=== PATIENT | female | born 1985 | race Caucasian/White ===

== ENCOUNTER 2021-12-03 14:06 | Emergency (ER) | payer SELFPAY ==
[~2021-12-03] VITALS: Ht 162.6 cm; Wt 52.0 kg
[2021-12-03 14:11] VITALS: BP 144/76
[2021-12-03] MEDS ORDERED: ACETAMINOPHEN 325MG TABLET PO ONE (16:45)
== END 2021-12-03 17:37 | disposition left against medical advice (07) ==
LOC: ER 14:16
DX: S00.03XA Contusion of scalp, initial encounter (principal); Y08.89XA Assault by other specified means, initial encounter; Y07.03 Male partner, perpetrator of maltreatment and neglect; Y93.89 Activity, other specified; Y92.488 Other paved roadways as the place of occurrence of the external cause
CPT/HCPCS: 99283

== ENCOUNTER 2022-01-05 13:24 | Emergency (ER) | payer SELFPAY ==
[~2022-01-05] VITALS: Ht 157.5 cm; Wt 59.0 kg
[2022-01-05 13:26] VITALS: BP 110/70
== END 2022-01-05 16:19 | disposition left against medical advice (07) ==
LOC: ER 13:24
DX: Z53.21 Procedure and treatment not carried out due to patient leaving prior to being seen by health care provider (principal)
CPT/HCPCS: 99283

== ENCOUNTER 2022-03-08 13:59 | Emergency (ER) | payer SELFPAY ==
[~2022-03-08] VITALS: Ht 175.3 cm; Wt 55.0 kg
[2022-03-08 14:04] VITALS: BP 95/65
== END 2022-03-08 19:25 | disposition left against medical advice (07) ==
LOC: ER 13:59
DX: Z53.21 Procedure and treatment not carried out due to patient leaving prior to being seen by health care provider (principal)

== ENCOUNTER 2022-03-08 18:29 | Emergency (ER) | payer SELFPAY ==
[~2022-03-08] VITALS: Ht 165.1 cm; Wt 49.0 kg
[2022-03-08 18:39] VITALS: BP 107/78
== END 2022-03-08 19:30 | disposition left against medical advice (07) ==
LOC: ER 18:43
DX: Z53.21 Procedure and treatment not carried out due to patient leaving prior to being seen by health care provider (principal)

== ENCOUNTER 2022-03-08 22:59 | Emergency (ER) | payer SELFPAY ==
[~2022-03-08] VITALS: Ht 162.6 cm; Wt 60.0 kg
[2022-03-09 03:15] VITALS: BP 100/71
[2022-03-09] MEDS ORDERED: IBUPROFEN 600MG TABLET PO ONE (03:15)
== END 2022-03-09 03:30 | disposition home or self-care (01) ==
LOC: ER 23:09
DX: G89.29 Other chronic pain (principal); M79.10 Myalgia, unspecified site; G62.9 Polyneuropathy, unspecified; Z59.00 Homelessness unspecified
CPT/HCPCS: 99283

== ENCOUNTER 2022-03-31 11:07 | Emergency (ER) | payer SELFPAY ==
[~2022-03-31] VITALS: Ht 165.1 cm; Wt 57.0 kg
[2022-03-31 11:14] VITALS: BP 132/68
[2022-03-31] MEDS ORDERED: FAMOTIDINE 20MG/2ML VIAL IV STA (11:20)
[2022-03-31] MEDS ORDERED: ONDANSETRON HCL 4MG/2ML INJ IV STA (11:20)
[2022-03-31] MEDS ORDERED: SODIUM CHLORIDE 0.9% 1,000 ML IV ONE (11:30)
[2022-03-31 11:52] LABS: BASOPHILS % 0.6 % (0.0-2.0); EOSINOPHILS % 0.1 % (0.0-5.0); HEMATOCRIT. 33.1 % (36.0-48.0); HEMOGLOBIN. 11.1 g/dL (12.0-16.0); LYMPHOCYTES % 15.8 % (20.0-50.0); MEAN CORPUSCULAR HEMOGLOBIN 31.6 pg (28.0-32.0); MEAN CORPUSCULAR VOLUME 93.9 fL (81.0-99.0); MEAN PLATELET VOLUME 7.1 fl (7.4-10.4); MONOCYTES % 8.3 % (2.0-8.0); NEUTROPHILS % 75.2 % (40.0-76.0); PLATELET 314 x1000/uL (130-400); RED BLOOD CELL COUNT 3.53 mill/uL (4.2-5.4); RED CELL DISTRIBUTION WIDTH 16.6 % (11.6-14.6)
[2022-03-31 12:07] LABS: CLARITY URINE CLEAR (CLEAR); COLOR URINE YELLOW (YELLOW); KETONES URINE NEGATIVE (NEGATIVE); LEUKOCYTE ESTERASE URINE 2+ (NEGATIVE); NITRITE URINE NEGATIVE (NEGATIVE); OCCULT BLOOD URINE TRACE (NEGATIVE); PROTEIN URINE NEGATIVE (NEGATIVE); SPECIFIC GRAVITY URINE 1.001 (1.005-1.030); UROBILINOGEN URINE 0.2 E.U./dL (0.2-1.0)
[2022-03-31] MEDS ORDERED: CEFTRIAXONE 1 G PREMIX 50 ML IV NR (12:15)
[2022-03-31 12:27] LABS: CHLORIDE 93 mEq/L (98-107)
[2022-03-31 12:30] LABS: HCG SCREEN NEGATIVE
[2022-03-31 12:47] LABS: ETHANOL BLOOD 488 mg/dL
[2022-03-31] MEDS ORDERED: POTASSIUM CHLORIDE 20MEQ TABLET SR PO NR (13:00)
[2022-03-31] MEDS ORDERED: DEXTROSE 50% WATER 50ML SYRINGE IV ONE (13:00)
[2022-03-31] MEDS ORDERED: ONDA4TAB50 MT (13:45)
== END 2022-03-31 14:40 | disposition left against medical advice (07) ==
LOC: ER 11:07
DX: F10.129 Alcohol abuse with intoxication, unspecified (principal); Y90.8 Blood alcohol level of 240 mg/100 ml or more; D64.9 Anemia, unspecified; K70.10 Alcoholic hepatitis without ascites; K29.20 Alcoholic gastritis without bleeding; F10.10 Alcohol abuse, uncomplicated; E16.2 Hypoglycemia, unspecified
CPT/HCPCS: 36415; 70450; 70486; 72125; 80053; 80320; 81003; 82962; 83690; 84703; 85025; 96361; 96365; 96375; 99284; J0696; J2405; J3490; J7030; Z7610; G0480

== ENCOUNTER 2022-05-24 16:33 | Emergency (ER) | payer SELFPAY ==
[~2022-05-24] VITALS: Ht 160 cm; Wt 50.0 kg
[~2022-05-24 16:33] MED LIST: ONDA4TAB50 MT
[2022-05-24 16:35] VITALS: BP 101/65
== END 2022-05-24 20:00 | disposition left against medical advice (07) ==
LOC: ER 16:33
DX: Z53.21 Procedure and treatment not carried out due to patient leaving prior to being seen by health care provider (principal)
CPT/HCPCS: 99281

== ENCOUNTER 2022-06-05 15:04 | Emergency (ER) | payer MEDICAID ==
[~2022-06-05] VITALS: Ht 162.6 cm; Wt 70.0 kg
[2022-06-05 15:07] VITALS: BP 110/80
[2022-06-06] MEDS ORDERED: IBUP-2029 MT (19:59)
== END 2022-06-05 19:02 | disposition left against medical advice (07) ==
LOC: ER 15:04
DX: M79.672 Pain in left foot (principal); M79.671 Pain in right foot; Z53.21 Procedure and treatment not carried out due to patient leaving prior to being seen by health care provider
CPT/HCPCS: 99281

== ENCOUNTER 2022-06-06 11:06 | Emergency (ER) | payer MEDICAID ==
[~2022-06-06] VITALS: Ht 162.6 cm; Wt 54.0 kg
[2022-06-06 11:07] VITALS: BP 131/88
[2022-06-06] MEDS ORDERED: IBUP-2029 MT (19:59)
== END 2022-06-06 12:50 | disposition left against medical advice (07) ==
LOC: ER 11:06
DX: Z53.21 Procedure and treatment not carried out due to patient leaving prior to being seen by health care provider (principal)
CPT/HCPCS: 99281

== ENCOUNTER 2022-06-06 16:56 | Emergency (ER) | payer MEDICAID ==
[~2022-06-06] VITALS: Ht 167.6 cm; Wt 64.0 kg
[2022-06-06 17:10] VITALS: BP 94/57
[2022-06-06] MEDS ORDERED: IBUPROFEN 600MG TABLET PO STA (17:19)
[2022-06-06] MEDS ORDERED: IBUP-2029 MT (19:59)
== END 2022-06-06 20:11 | disposition home or self-care (01) ==
LOC: ER 16:56
DX: S00.83XA Contusion of other part of head, initial encounter (principal); Z98.890 Other specified postprocedural states; Y04.0XXA Assault by unarmed brawl or fight, initial encounter; Y93.9 Activity, unspecified; Y92.89 Other specified places as the place of occurrence of the external cause; Y99.8 Other external cause status
CPT/HCPCS: 70486; 99284

== ENCOUNTER 2022-06-14 13:46 | Emergency (ER) | payer MEDICAID ==
[~2022-06-14] VITALS: Ht 172.7 cm; Wt 70.0 kg
[~2022-06-14 13:46] MED LIST changes: +IBUP-2029 MT
[2022-06-14 13:52] VITALS: BP 99/58
[2022-06-14] MEDS ORDERED: SODIUM CHLORIDE 0.9% 1,000 ML IV ONE (15:00)
[2022-06-14 15:53] LABS: BASOPHILS % 0.4 % (0.0-2.0); EOSINOPHILS % 2.5 % (0.0-5.0); HEMATOCRIT. 33.5 % (36.0-48.0); LYMPHOCYTES % 27.4 % (20.0-50.0); MEAN CORPUSCULAR VOLUME 97.3 fL (81.0-99.0); MEAN PLATELET VOLUME 7.6 fl (7.4-10.4); MONOCYTES % 8.6 % (2.0-8.0); NEUTROPHILS % 61.1 % (40.0-76.0); PLATELET 179 x1000/uL (130-400); RED BLOOD CELL COUNT 3.44 mill/uL (4.2-5.4); RED CELL DISTRIBUTION WIDTH 15.3 % (11.6-14.6)
[2022-06-14 16:00] LABS: CHLORIDE 107 mEq/L (98-107)
[2022-06-14 16:07] LABS: HCG SCREEN NEGATIVE
[2022-06-14 16:53] LABS: ETHANOL BLOOD 330 mg/dL
== END 2022-06-14 20:00 | disposition left against medical advice (07) ==
LOC: ER 13:46
DX: R51.9 Headache, unspecified (principal)
CPT/HCPCS: 36415; 80053; 80320; 84703; 85025; 99283; J7030; G0480

== ENCOUNTER 2022-06-15 12:18 | Emergency (ER) | payer MEDICAID ==
[~2022-06-15] VITALS: Ht 162.6 cm; Wt 55.0 kg
[2022-06-15 12:25] VITALS: BP 92/65
[2022-06-15] MEDS ORDERED: SODIUM CHLORIDE 0.9% 1,000 ML IV ONE (12:30)
== END 2022-06-15 12:47 | disposition left against medical advice (07) ==
LOC: ER 12:18
DX: G62.9 Polyneuropathy, unspecified (principal); Y09 Assault by unspecified means
CPT/HCPCS: 99283; J7030

== ENCOUNTER 2022-06-15 13:37 | Emergency (ER) | payer MEDICAID ==
[~2022-06-15] VITALS: Ht 160 cm; Wt 50.0 kg
[2022-06-15 13:39] VITALS: BP 136/70
== END 2022-06-15 15:03 | disposition left against medical advice (07) ==
LOC: ER 13:37
DX: Z53.21 Procedure and treatment not carried out due to patient leaving prior to being seen by health care provider (principal)
CPT/HCPCS: 99281

== ENCOUNTER 2022-06-16 17:55 | Emergency (ER) | payer MEDICAID ==
[~2022-06-16] VITALS: Ht 162.6 cm; Wt 50.0 kg
[2022-06-16 17:58] VITALS: BP 96/69
== END 2022-06-16 21:17 | disposition left against medical advice (07) ==
LOC: ER 18:09
DX: Z53.21 Procedure and treatment not carried out due to patient leaving prior to being seen by health care provider (principal)
CPT/HCPCS: 99281

== ENCOUNTER 2022-06-17 00:05 | Emergency (ER) | payer MEDICAID ==
[~2022-06-17] VITALS: Ht 170.2 cm; Wt 59.0 kg
[2022-06-17 00:07] VITALS: BP 126/80
[2022-06-17] MEDS ORDERED: SODIUM CHLORIDE 0.9% 1,000 ML IV ONE (00:15)
[2022-06-17 04:42] LABS: BASOPHILS % 0.3 % (0.0-2.0); EOSINOPHILS % 1.5 % (0.0-5.0); HEMATOCRIT. 31.5 % (36.0-48.0); HEMOGLOBIN. 10.5 g/dL (12.0-16.0); MEAN CORPUSCULAR HEMOGLOBIN 31.8 pg (28.0-32.0); MEAN CORPUSCULAR VOLUME 95.7 fL (81.0-99.0); MEAN PLATELET VOLUME 7.2 fl (7.4-10.4); MONOCYTES % 7.8 % (2.0-8.0); NEUTROPHILS % 38.4 % (40.0-76.0); PLATELET 247 x1000/uL (130-400); RED BLOOD CELL COUNT 3.29 mill/uL (4.2-5.4); RED CELL DISTRIBUTION WIDTH 15.4 % (11.6-14.6)
[2022-06-17 05:05] LABS: CHLORIDE 108 mEq/L (98-107)
[2022-06-17 05:08] LABS: HCG SCREEN NEGATIVE
[2022-06-17 05:17] LABS: ETHANOL BLOOD 356 mg/dL
== END 2022-06-17 11:43 | disposition left against medical advice (07) ==
LOC: ER 00:05
DX: F10.129 Alcohol abuse with intoxication, unspecified (principal); Y90.8 Blood alcohol level of 240 mg/100 ml or more; Y04.0XXA Assault by unarmed brawl or fight, initial encounter; Y93.89 Activity, other specified; Y92.89 Other specified places as the place of occurrence of the external cause; Y99.8 Other external cause status
CPT/HCPCS: 36415; 80053; 80320; 81025; 84703; 85025; 99283; J7030; G0480

== ENCOUNTER 2022-06-17 11:38 | Emergency (ER) | payer MEDICAID ==
[~2022-06-17] VITALS: Ht 165.1 cm; Wt 59.0 kg
[2022-06-17 11:42] VITALS: BP 93/55
== END 2022-06-17 17:54 | disposition left against medical advice (07) ==
LOC: ER 11:53
DX: Z53.21 Procedure and treatment not carried out due to patient leaving prior to being seen by health care provider (principal)

== ENCOUNTER 2022-06-20 22:13 | Emergency (ER) | payer MEDICAID ==
[~2022-06-20] VITALS: Ht 165.1 cm; Wt 64.0 kg
[2022-06-20 22:38] VITALS: BP 100/72
[2022-06-21] MEDS ORDERED: ACETAMINOPHEN 325MG TABLET PO ONE (01:15)
[2022-06-21] MEDS ORDERED: IBUP-2437 MT (01:15)
== END 2022-06-21 02:00 | disposition home or self-care (01) ==
LOC: ER 22:13
DX: R51.9 Headache, unspecified (principal); E11.9 Type 2 diabetes mellitus without complications; Z98.890 Other specified postprocedural states
CPT/HCPCS: 99283

== ENCOUNTER 2022-07-24 18:17 | Emergency (ER) | payer MEDICAID ==
[~2022-07-24] VITALS: Ht 170.2 cm; Wt 55.0 kg
[~2022-07-24 18:17] MED LIST changes: +IBUP-2437 MT
[2022-07-24 18:27] VITALS: BP 158/88
[2022-07-24] MEDS ORDERED: ACETAMINOPHEN 325MG TABLET PO ONE (18:45)
== END 2022-07-25 02:57 | disposition left against medical advice (07) ==
LOC: ER 18:17
DX: R51.9 Headache, unspecified (principal); Z53.21 Procedure and treatment not carried out due to patient leaving prior to being seen by health care provider
CPT/HCPCS: 99281

== ENCOUNTER 2022-08-09 14:41 | Emergency (ER) | payer MEDICAID ==
[~2022-08-09] VITALS: Ht 157.5 cm; Wt 55.0 kg
[2022-08-09 14:44] VITALS: BP 88/59
[2022-08-09 15:53] LABS: BASOPHILS % 0.6 % (0.0-2.0); EOSINOPHILS % 0.4 % (0.0-5.0); HEMATOCRIT. 32.9 % (36.0-48.0); HEMOGLOBIN. 10.9 g/dL (12.0-16.0); LYMPHOCYTES % 34.2 % (20.0-50.0); MEAN CORPUSCULAR HEMOGLOBIN 31.6 pg (28.0-32.0); MEAN CORPUSCULAR VOLUME 95.5 fL (81.0-99.0); MEAN PLATELET VOLUME 7.3 fl (7.4-10.4); MONOCYTES % 9.1 % (2.0-8.0); NEUTROPHILS % 55.7 % (40.0-76.0); PLATELET 172 x1000/uL (130-400); RED BLOOD CELL COUNT 3.45 mill/uL (4.2-5.4); RED CELL DISTRIBUTION WIDTH 17.2 % (11.6-14.6)
[2022-08-09 16:02] LABS: CHLORIDE 103 mEq/L (98-107)
[2022-08-09 16:20] LABS: ETHANOL BLOOD 423 mg/dL; HCG SCREEN NEGATIVE
== END 2022-08-09 17:36 | disposition left against medical advice (07) ==
LOC: ER 15:10
DX: E11.9 Type 2 diabetes mellitus without complications (principal); F10.129 Alcohol abuse with intoxication, unspecified; Z53.21 Procedure and treatment not carried out due to patient leaving prior to being seen by health care provider; Z98.890 Other specified postprocedural states; Y04.0XXA Assault by unarmed brawl or fight, initial encounter; Y93.89 Activity, other specified; Y92.89 Other specified places as the place of occurrence of the external cause; Y99.8 Other external cause status; Y90.8 Blood alcohol level of 240 mg/100 ml or more
CPT/HCPCS: 36415; 80053; 80320; 84703; 85025; 99283; G0480

== ENCOUNTER 2022-08-21 14:26 | Emergency (ER) | payer MEDICAID ==
[~2022-08-21] VITALS: Ht 157.5 cm; Wt 55.0 kg
[2022-08-21 14:28] VITALS: BP 98/62
== END 2022-08-21 16:22 | disposition left against medical advice (07) ==
LOC: ER 14:26
DX: R51.9 Headache, unspecified (principal); Z53.21 Procedure and treatment not carried out due to patient leaving prior to being seen by health care provider
CPT/HCPCS: 99281

== ENCOUNTER 2022-08-25 20:33 | Emergency (ER) | payer MEDICAID ==
[~2022-08-25] VITALS: Ht 162.6 cm; Wt 55.0 kg
[2022-08-25 20:46] VITALS: BP 105/75
== END 2022-08-26 00:02 | disposition left against medical advice (07) ==
LOC: ER 20:33
DX: R51.9 Headache, unspecified (principal); E11.9 Type 2 diabetes mellitus without complications
CPT/HCPCS: 99283

== ENCOUNTER 2022-09-08 15:44 | Emergency (ER) | payer MEDICAID ==
[~2022-09-08] VITALS: Ht 167.6 cm; Wt 68.0 kg
[2022-09-08 15:46] VITALS: BP 120/82; PULSE 83; RESP 15; TEMP 97.6; O2SAT 98
== END 2022-09-09 03:00 | disposition left against medical advice (07) ==
LOC: ER 15:44
DX: Z53.21 Procedure and treatment not carried out due to patient leaving prior to being seen by health care provider (principal)

== ENCOUNTER 2022-09-14 12:41 | Emergency (ER) | payer MEDICAID ==
[~2022-09-14] VITALS: Ht 167.6 cm; Wt 61.0 kg
[2022-09-14 12:44] VITALS: O2SAT 99
[2022-09-14] MEDS ORDERED: SODIUM CHLORIDE 0.9% 1,000 ML IV ONE (13:15)
[2022-09-14 13:21] LABS: BASOPHILS % 1.1 % (0.0-2.0); EOSINOPHILS % 2.9 % (0.0-5.0); HEMATOCRIT. 32.2 % (36.0-48.0); HEMOGLOBIN. 10.8 g/dL (12.0-16.0); LYMPHOCYTES % 35.1 % (20.0-50.0); MEAN CORPUSCULAR HEMOGLOBIN 32.8 pg (28.0-32.0); MEAN CORPUSCULAR VOLUME 97.8 fL (81.0-99.0); MEAN PLATELET VOLUME 7.3 fl (7.4-10.4); MONOCYTES % 5.2 % (2.0-8.0); NEUTROPHILS % 55.7 % (40.0-76.0); PLATELET 143 x1000/uL (130-400); RED BLOOD CELL COUNT 3.29 mill/uL (4.2-5.4); RED CELL DISTRIBUTION WIDTH 17.1 % (11.6-14.6)
[2022-09-14 13:30] VITALS: BP 92/65; PULSE 88; RESP 20; TEMP 97.8
[2022-09-14 13:48] LABS: CHLORIDE 108 mEq/L (98-107)
[2022-09-14 14:05] LABS: ETHANOL BLOOD 476 mg/dL (-10)
[2022-09-14 17:25] LABS: HCG SCREEN NEGATIVE
== END 2022-09-14 18:04 | disposition home or self-care (01) ==
LOC: ER 12:41
DX: T51.0X1A Toxic effect of ethanol, accidental (unintentional), initial encounter (principal); E11.9 Type 2 diabetes mellitus without complications; Y92.9 Unspecified place or not applicable
CPT/HCPCS: 80053; 80320; 82962; 84703; 83690; 85025; 36415; 93005; 96360; 99284; J7030; G0480

== ENCOUNTER 2022-09-17 16:15 | Emergency (ER) | payer MEDICAID ==
[~2022-09-17] VITALS: Ht 165.1 cm; Wt 59.0 kg
[2022-09-17 16:18] VITALS: BP 115/67; PULSE 89; RESP 16; TEMP 98.4; O2SAT 97
== END 2022-09-17 16:49 | disposition left against medical advice (07) ==
LOC: ER 16:15
DX: F10.129 Alcohol abuse with intoxication, unspecified (principal); Y90.0 Blood alcohol level of less than 20 mg/100 ml; E11.9 Type 2 diabetes mellitus without complications; Z87.891 Personal history of nicotine dependence
CPT/HCPCS: 99283

== ENCOUNTER 2022-09-20 21:16 | Emergency (ER) | payer MEDICAID ==
[~2022-09-20] VITALS: Ht 162.6 cm; Wt 64.0 kg
[2022-09-20 21:20] VITALS: BP 107/72; PULSE 93; RESP 18; TEMP 98.7; O2SAT 100
[2022-09-20 23:05] LABS: BASOPHILS % 1.3 % (0.0-2.0); EOSINOPHILS % 3.4 % (0.0-5.0); HEMATOCRIT. 32.5 % (36.0-48.0); HEMOGLOBIN. 10.6 g/dL (12.0-16.0); LYMPHOCYTES % 47.7 % (20.0-50.0); MEAN CORPUSCULAR HEMOGLOBIN 32.4 pg (28.0-32.0); MEAN CORPUSCULAR VOLUME 99.6 fL (81.0-99.0); MEAN PLATELET VOLUME 7.5 fl (7.4-10.4); MONOCYTES % 7.2 % (2.0-8.0); NEUTROPHILS % 40.4 % (40.0-76.0); PLATELET 110 x1000/uL (130-400); RED BLOOD CELL COUNT 3.26 mill/uL (4.2-5.4); RED CELL DISTRIBUTION WIDTH 17.7 % (11.6-14.6)
[2022-09-20 23:12] LABS: CHLORIDE 105 mEq/L (98-107)
[2022-09-20 23:15] LABS: INR 1.2; PROTHROMBIN TIME 12.5 sec (9.6-11.0)
[2022-09-20 23:20] LABS: HCG SCREEN NEGATIVE
[2022-09-20 23:36] LABS: ETHANOL BLOOD 431 mg/dL (-10)
== END 2022-09-21 06:30 | disposition home or self-care (01) ==
LOC: ER 21:16
DX: F10.129 Alcohol abuse with intoxication, unspecified (principal); I10 Essential (primary) hypertension; E11.9 Type 2 diabetes mellitus without complications; Y90.8 Blood alcohol level of 240 mg/100 ml or more
CPT/HCPCS: 36415; 80053; 80320; 84703; 85025; 99283; G0480

== ENCOUNTER 2022-09-21 06:53 | Emergency (ER) | payer MEDICAID ==
[~2022-09-21] VITALS: Ht 162.6 cm; Wt 60.0 kg
[2022-09-21 06:57] VITALS: BP 93/67; PULSE 77; RESP 16; TEMP 98.1; O2SAT 98
[2022-09-21] MEDS ORDERED: ONDANSETRON HCL 4MG/2ML INJ IV STA (07:05)
[2022-09-21] MEDS ORDERED: MORPHINE SULFATE 4 MG/ML CPJ (NOT FOR IM USE) IV STA (07:05)
[2022-09-21] MEDS ORDERED: SODIUM CHLORIDE 0.9% 1,000 ML IV ONE (07:15)
[2022-09-21] MEDS ORDERED: ONDANSETRON HCL 4MG/2ML INJ IV NR (09:30)
[2022-09-21] MEDS ORDERED: MORPHINE SULFATE 4 MG/ML CPJ (NOT FOR IM USE) IV NR (09:30)
== END 2022-09-21 09:43 | disposition home or self-care (01) ==
LOC: ER 08:11
DX: R10.84 Generalized abdominal pain (principal); I10 Essential (primary) hypertension; E11.9 Type 2 diabetes mellitus without complications
CPT/HCPCS: 74176; 99284; J7030; Z7610 ×3

== ENCOUNTER 2022-09-28 11:35 | Emergency (ER) | payer MEDICAID ==
[~2022-09-28] VITALS: Ht 167.6 cm; Wt 58.0 kg
[2022-09-28 11:38] VITALS: BP 101/67; PULSE 106; RESP 20; TEMP 98.5; O2SAT 97
== END 2022-09-28 16:37 | disposition left against medical advice (07) ==
LOC: ER 11:35
DX: Z53.21 Procedure and treatment not carried out due to patient leaving prior to being seen by health care provider (principal)
CPT/HCPCS: 99281

== ENCOUNTER 2022-09-28 18:14 | Emergency (ER) | payer MEDICAID ==
[~2022-09-28] VITALS: Ht 162.6 cm; Wt 55.0 kg
[2022-09-28 18:23] VITALS: BP 90/40; PULSE 80; RESP 16; TEMP 98; O2SAT 99
== END 2022-09-28 18:20 | disposition left against medical advice (07) ==
LOC: ER 18:14
DX: Z53.21 Procedure and treatment not carried out due to patient leaving prior to being seen by health care provider (principal)
CPT/HCPCS: 99281

== ENCOUNTER 2022-10-11 23:39 | Emergency (ER) | payer MEDICAID ==
[~2022-10-11] VITALS: Ht 160 cm; Wt 51.0 kg
[2022-10-11 23:43] VITALS: O2SAT 98
[2022-10-11] MEDS ORDERED: MAGNESIUM/ALUMINUM HYDROXIDE/SIMETHICONE 30ML UDC PO STA (23:59)
[2022-10-12 03:52] LABS: BASOPHILS % 0.8 % (0.0-2.0); EOSINOPHILS % 1.4 % (0.0-5.0); HEMATOCRIT. 31.3 % (36.0-48.0); HEMOGLOBIN. 10.4 g/dL (12.0-16.0); LYMPHOCYTES % 34.1 % (20.0-50.0); MEAN CORPUSCULAR HEMOGLOBIN 33.7 pg (28.0-32.0); MEAN CORPUSCULAR VOLUME 101.1 fL (81.0-99.0); MONOCYTES % 6.2 % (2.0-8.0); NEUTROPHILS % 57.5 % (40.0-76.0); PLATELET 308 x1000/uL (130-400)
[2022-10-12 04:12] LABS: CHLORIDE 108 mEq/L (98-107)
[2022-10-12 04:26] LABS: HCG SCREEN NEGATIVE
[2022-10-12] MEDS ORDERED: ONDA4TAB50 MT (05:03)
[2022-10-12 05:14] VITALS: BP 105/77; PULSE 83; RESP 15; TEMP 97.8
== END 2022-10-12 05:15 | disposition home or self-care (01) ==
LOC: ER 23:39
DX: R10.9 Unspecified abdominal pain (principal); E11.9 Type 2 diabetes mellitus without complications; Z53.21 Procedure and treatment not carried out due to patient leaving prior to being seen by health care provider; Z90.49 Acquired absence of other specified parts of digestive tract
CPT/HCPCS: 36415; 80053; 84703; 85025; 99283

== ENCOUNTER 2022-10-12 20:29 | Emergency (ER) | payer MEDICAID ==
[~2022-10-12] VITALS: Ht 172.7 cm; Wt 56.0 kg
[2022-10-12 20:39] VITALS: BP 95/57; PULSE 76; RESP 16; TEMP 97.3; O2SAT 99
== END 2022-10-13 01:11 | disposition left against medical advice (07) ==
LOC: ER 20:29
DX: R10.9 Unspecified abdominal pain (principal)
CPT/HCPCS: 99283; Z7610

== ENCOUNTER 2022-10-13 20:01 | Emergency (ER) | payer MEDICAID ==
[~2022-10-13] VITALS: Ht 167.6 cm; Wt 73.0 kg
[2022-10-13 20:05] VITALS: BP 109/80; PULSE 81; RESP 16; TEMP 98.2; O2SAT 99
[2022-10-13] MEDS ORDERED: SODIUM CHLORIDE 0.9% 1,000 ML IV ONE (20:15)
[2022-10-13 21:13] LABS: BASOPHILS % 1.3 % (0.0-2.0); DIFFERENTIAL COMMENT 0; EOSINOPHILS % 1.4 % (0.0-5.0); HEMATOCRIT. 32.9 % (36.0-48.0); HEMOGLOBIN. 11.2 g/dL (12.0-16.0); LYMPHOCYTES % 37.7 % (20.0-50.0); MEAN CORPUSCULAR HEMOGLOBIN 34.3 pg (28.0-32.0); MEAN CORPUSCULAR HGB CONC 33.9 g/dL (31.0-37.0); MEAN CORPUSCULAR VOLUME 101.1 fL (81.0-99.0); MEAN PLATELET VOLUME 7.4 fl (7.4-10.4); MONOCYTES % 6.1 % (2.0-8.0); NEUTROPHILS % 53.5 % (40.0-76.0); PLATELET 288 x1000/uL (130-400); RED BLOOD CELL COUNT 3.25 mill/uL (4.2-5.4); RED CELL DISTRIBUTION WIDTH 15.8 % (11.6-14.6); WHITE BLOOD COUNT 5.3 x1000/uL (4.5-11.0)
[2022-10-13 21:19] LABS: INR 1.1; PROTHROMBIN TIME 11.8 sec (9.6-11.0)
[2022-10-13 21:23] LABS: CHLORIDE 105 mEq/L (98-107); INDEX HEMOLYSI 1 (1-3); INDEX ICTERIC 1 (1-4); INDEX LIPEMIC 1 (1-3); POTASSIUM 3.6 mEq/L (3.5-5.1); SODIUM 139 mEq/L (136-145)
[2022-10-13 21:34] LABS: ALANINE AMINOTRANSFERASE 106 IU/L (13-61); ASPARTATE AMINOTRANSFERASE 404 IU/L (15-37); BETA HYDROXYBUTYRATE 0.3 mMol/L (0.0-0.3); BILIRUBIN TOTAL 0.5 mg/dL (0.1-1.0); CALCIUM 8.9 mg/dL (8.5-10.1); CARBON DIOXIDE 25 mEq/L (21-32); CREATININE 0.5 mg/dL (0.6-1.3); GLUCOSE 84 mg/dL (70-105); UREA NITROGEN BLOOD 3 mg/dL (7-21)
[2022-10-13 21:36] LABS: HCG SCREEN NEGATIVE
[2022-10-13 21:40] LABS: TROPONIN I HIGH SENSITIVITY < 4 ng/L (<54)
[2022-10-13 21:44] LABS: ETHANOL BLOOD 437 mg/dL (-10)
[2022-10-13 21:45] LABS: LACTIC ACID 2.6 mmol/L (0.4-2.0)
== END 2022-10-14 01:57 | disposition home or self-care (01) ==
LOC: EDBD → ER 20:01
DX: F10.129 Alcohol abuse with intoxication, unspecified (principal); Y90.8 Blood alcohol level of 240 mg/100 ml or more; E11.9 Type 2 diabetes mellitus without complications; Z79.899 Other long term (current) drug therapy
CPT/HCPCS: 80053; 82010; 80320; 82962; 84703; 83605; 83690; 85025; 85610; 84484; 36415; 74176; 93005; 96360; 99284; J7030; G0480

== ENCOUNTER 2022-10-14 14:30 | Emergency (ER) | payer MEDICAID ==
[~2022-10-14] VITALS: Ht 162.6 cm; Wt 65.0 kg
[2022-10-14 14:47] VITALS: BP 102/64; PULSE 98; RESP 18; TEMP 98.4; O2SAT 100
[2022-10-14 15:48] LABS: EOSINOPHILS % 0.9 % (0.0-5.0); HEMATOCRIT. 29.1 % (36.0-48.0); HEMOGLOBIN. 10.1 g/dL (12.0-16.0); LYMPHOCYTES % 27.4 % (20.0-50.0); MEAN CORPUSCULAR VOLUME 100.7 fL (81.0-99.0); MEAN PLATELET VOLUME 7.4 fl (7.4-10.4); MONOCYTES % 5.2 % (2.0-8.0); NEUTROPHILS % 65.5 % (40.0-76.0); PLATELET 238 x1000/uL (130-400); RED BLOOD CELL COUNT 2.89 mill/uL (4.2-5.4); RED CELL DISTRIBUTION WIDTH 15.7 % (11.6-14.6)
[2022-10-14 15:56] LABS: INR 1.1; PROTHROMBIN TIME 11.7 sec (9.6-11.0)
[2022-10-14 15:58] LABS: CHLORIDE 105 mEq/L (98-107)
[2022-10-14 16:06] LABS: ETHANOL BLOOD 374 mg/dL (-10)
== END 2022-10-14 14:40 | disposition home or self-care (01) ==
LOC: ER 14:30
DX: F10.129 Alcohol abuse with intoxication, unspecified (principal); Y90.8 Blood alcohol level of 240 mg/100 ml or more
CPT/HCPCS: 36415; 80053; 80320; 85025; 99283; G0480

== ENCOUNTER 2022-10-15 21:34 | Emergency (ER) | payer MEDICAID ==
[~2022-10-15] VITALS: Ht 162.6 cm; Wt 65.0 kg
== END 2022-10-16 00:30 | disposition left against medical advice (07) ==
LOC: ER 21:34
DX: Z53.21 Procedure and treatment not carried out due to patient leaving prior to being seen by health care provider (principal)
CPT/HCPCS: 99281

== ENCOUNTER 2022-10-18 18:39 | Emergency (ER) | payer MEDICAID ==
[~2022-10-18] VITALS: Ht 162.6 cm; Wt 65.0 kg
[2022-10-18 18:42] VITALS: BP 99/70; PULSE 96; RESP 16; TEMP 98.5; O2SAT 97
== END 2022-10-18 21:01 | disposition left against medical advice (07) ==
LOC: ER 18:39
DX: M79.672 Pain in left foot (principal); M79.671 Pain in right foot; Z53.21 Procedure and treatment not carried out due to patient leaving prior to being seen by health care provider
CPT/HCPCS: 99283

== ENCOUNTER 2022-10-29 20:24 | Emergency (ER) | payer MEDICAID ==
[~2022-10-29] VITALS: Ht 162.6 cm; Wt 55.0 kg
[2022-10-29 20:28] VITALS: BP 96/54; PULSE 84; RESP 16; TEMP 98.4; O2SAT 99
[2022-10-29] MEDS ORDERED: ACETAMINOPHEN 325MG TABLET PO ONE (20:30)
== END 2022-10-29 20:53 | disposition left against medical advice (07) ==
LOC: ER 20:24
DX: F10.229 Alcohol dependence with intoxication, unspecified (principal); M79.604 Pain in right leg; M79.605 Pain in left leg; Y90.0 Blood alcohol level of less than 20 mg/100 ml
CPT/HCPCS: 99283

== ENCOUNTER 2022-11-27 13:17 | Emergency (ER) | payer MEDICAID ==
[~2022-11-27] VITALS: Ht 162.6 cm; Wt 5.0 kg
[2022-11-27 13:20] VITALS: BP 101/65; PULSE 95; RESP 16; TEMP 98.2; O2SAT 98
[2022-11-27] MEDS ORDERED: MORPHINE SULFATE 4 MG/ML CPJ (NOT FOR IM USE) IV STA (13:24)
[2022-11-27] MEDS ORDERED: ONDANSETRON HCL 4MG/2ML INJ IV STA (13:24)
[2022-11-27] MEDS ORDERED: SODIUM CHLORIDE 0.9% 1,000 ML IV ONE (13:30)
== END 2022-11-27 13:39 | disposition left against medical advice (07) ==
LOC: ER 13:17
DX: R10.9 Unspecified abdominal pain (principal); R51.9 Headache, unspecified; I10 Essential (primary) hypertension; Y08.89XA Assault by other specified means, initial encounter; Y93.89 Activity, other specified; Y92.89 Other specified places as the place of occurrence of the external cause; Y99.8 Other external cause status
CPT/HCPCS: 99281; J7030

== ENCOUNTER 2023-01-25 13:53 | Emergency (ER) | payer MEDICAID | END 2023-01-25 14:26 | disposition left against medical advice (07) | LOC: ER 13:53 | DX: Z53.21 Procedure and treatment not carried out due to patient leaving prior to being seen by health care provider (principal) ==

== ENCOUNTER 2023-02-02 13:44 | Emergency (ER) | payer MEDICAID ==
[~2023-02-02] VITALS: Ht 167.6 cm; Wt 73.0 kg
[2023-02-02 13:47] VITALS: BP 96/66; PULSE 92; RESP 16; TEMP 98.2; O2SAT 97
[2023-02-02] MEDS ORDERED: GABA-529 MT (14:11)
[2023-02-02] MEDS ORDERED: GABAPENTIN 300MG CAPSULE PO ONE (14:15)
== END 2023-02-02 15:38 | disposition home or self-care (01) ==
LOC: ER 13:44
DX: G62.9 Polyneuropathy, unspecified (principal); G89.29 Other chronic pain; F10.229 Alcohol dependence with intoxication, unspecified; E11.9 Type 2 diabetes mellitus without complications; Y90.0 Blood alcohol level of less than 20 mg/100 ml
CPT/HCPCS: 99283

== ENCOUNTER 2023-02-10 15:27 | Emergency (ER) | payer MEDICAID ==
[~2023-02-10] VITALS: Ht 167.6 cm; Wt 50.0 kg
[~2023-02-10 15:27] MED LIST changes: +GABA-529 MT
[2023-02-10 15:43] VITALS: BP 107/65; PULSE 88; RESP 18; TEMP 98.3; O2SAT 99
== END 2023-02-10 16:50 | disposition left against medical advice (07) ==
LOC: ER 15:29
DX: R10.9 Unspecified abdominal pain (principal); Z53.21 Procedure and treatment not carried out due to patient leaving prior to being seen by health care provider
CPT/HCPCS: 99281; 99283

== ENCOUNTER 2023-02-18 21:58 | Emergency (ER) | payer MEDICAID ==
[~2023-02-18] VITALS: Ht 167.6 cm; Wt 59.0 kg
[2023-02-18 22:07] VITALS: BP 88/57; PULSE 88; RESP 14; TEMP 97.7; O2SAT 99
== END 2023-02-18 22:21 | disposition left against medical advice (07) ==
LOC: ER 21:58
DX: Z53.21 Procedure and treatment not carried out due to patient leaving prior to being seen by health care provider (principal)
CPT/HCPCS: 99281

== ENCOUNTER 2023-02-19 11:51 | Emergency (ER) | payer MEDICAID ==
[~2023-02-19] VITALS: Ht 172.7 cm; Wt 73.0 kg
[2023-02-19 11:56] VITALS: BP 90/56; PULSE 90; RESP 18; TEMP 98.1; O2SAT 98
== END 2023-02-19 19:08 | disposition left against medical advice (07) ==
LOC: ER 11:51
DX: Z53.21 Procedure and treatment not carried out due to patient leaving prior to being seen by health care provider (principal)
CPT/HCPCS: 99281

== ENCOUNTER 2023-03-26 11:39 | Emergency (ER) | payer MEDICAID ==
[~2023-03-26] VITALS: Ht 160 cm; Wt 55.0 kg
[2023-03-26 11:50] VITALS: BP 114/72; PULSE 92; RESP 16; TEMP 98.2; O2SAT 96
== END 2023-03-26 16:06 | disposition left against medical advice (07) ==
LOC: ER 11:39
DX: R51.9 Headache, unspecified (principal); Z53.21 Procedure and treatment not carried out due to patient leaving prior to being seen by health care provider
CPT/HCPCS: 99281

== ENCOUNTER 2023-04-25 23:31 | Emergency (ER) | payer MEDICAID ==
[~2023-04-25] VITALS: Ht 167.6 cm; Wt 74.0 kg
[2023-04-25 23:45] VITALS: BP 148/78; PULSE 68; RESP 18; TEMP 97.8; O2SAT 96
== END 2023-04-26 00:38 | disposition left against medical advice (07) ==
LOC: ER 23:42
DX: M79.601 Pain in right arm (principal); Z53.21 Procedure and treatment not carried out due to patient leaving prior to being seen by health care provider
CPT/HCPCS: 99281

== ENCOUNTER 2023-06-05 13:06 | Emergency (ER) | payer MEDICAID ==
[~2023-06-05] VITALS: Ht 157.5 cm; Wt 54.0 kg
[2023-06-05 13:08] VITALS: BP 108/74; PULSE 96; RESP 16; TEMP 98.5; O2SAT 98
== END 2023-06-05 15:19 | disposition left against medical advice (07) ==
LOC: ER 13:53
DX: K08.89 Other specified disorders of teeth and supporting structures (principal); Z53.21 Procedure and treatment not carried out due to patient leaving prior to being seen by health care provider
CPT/HCPCS: 99281

== ENCOUNTER 2023-06-05 17:33 | Emergency (ER) | payer MEDICAID ==
[~2023-06-05] VITALS: Ht 167.6 cm; Wt 64.0 kg
[2023-06-05 17:36] VITALS: BP 102/68; PULSE 100; RESP 18; TEMP 98.6; O2SAT 98
== END 2023-06-05 19:57 | disposition left against medical advice (07) ==
LOC: ER 17:33
DX: R10.9 Unspecified abdominal pain (principal); Z53.21 Procedure and treatment not carried out due to patient leaving prior to being seen by health care provider
CPT/HCPCS: 99281

== ENCOUNTER 2023-10-18 16:39 | Emergency (ER) | payer MEDICAID, OTHER ==
[~2023-10-18] VITALS: Ht 170.2 cm; Wt 60.0 kg
[2023-10-18 16:45] VITALS: BP 112/72; PULSE 82; RESP 18; TEMP 98.3; O2SAT 98
[2023-10-18] MEDS ORDERED: ONDANSETRON 4MG ODT PO STA (16:48)
[2023-10-18] MEDS ORDERED: KETOROLAC 30MG/ML VIAL IM ONE (17:00)
== END 2023-10-18 18:41 | disposition left against medical advice (07) ==
LOC: ER 16:39
DX: R10.11 Right upper quadrant pain (principal); E11.9 Type 2 diabetes mellitus without complications; I10 Essential (primary) hypertension; Z53.21 Procedure and treatment not carried out due to patient leaving prior to being seen by health care provider; Z90.49 Acquired absence of other specified parts of digestive tract; Z98.890 Other specified postprocedural states
CPT/HCPCS: 99283